=== PATIENT | female | born 1980 | race Caucasian/White ===

== ENCOUNTER → 2016-11-03 | Outpatient (CLI) | payer OTHER ==
[~2016-11-03] MED LIST: PRENTAB26 PO
[2016-11-03 18:01] LABS: THYROID STIMULATING HORMONE 6.09 uIu/ml (0.300-4.500)
== END | disposition home or self-care (01) ==
LOC: C.LABPBG 11:16
PROVIDERS: ATTEND Physician Assistant
DX: L67.8 Other hair color and hair shaft abnormalities (principal)

== ENCOUNTER → 2016-11-06 | Outpatient (CLI) | payer OTHER ==
--- NOTE | 2016-11-06 14:14 | DIAGNOSTIC IMAGING REPORT ---
L-SPINE FLEX/EXT BENDING MIN 6 CLINICAL HISTORY: 36 years-old Female presenting with left-sided radiculopathy, back pain. TECHNIQUE: Frontal, bilateral oblique, and lateral views of the lumbar spine with coned and lateral view of the lumbosacral junction were obtained. COMPARISON: None. FINDINGS: Vertebral bodies maintain normal height and alignment. Intervertebral disc spaces preserved. No radiographic evidence of acute fracture or subluxation. No osseous neural foraminal narrowing. Nonobstructive bowel gas pattern. IMPRESSION: No radiographic evidence of lumbar spine abnormality.. Electronically signed by: Humble Guzman M.D. 11/06/2016 2:12 PM Dictated Date/Time: 11/06/2016 2:11 PM
== END | disposition home or self-care (01) ==
LOC: C.RAD 13:43
PROVIDERS: ATTEND Physician Assistant
DX: M54.10 Radiculopathy, site unspecified (principal)

== ENCOUNTER → 2016-12-23 | Outpatient (CLI) | payer OTHER | END | disposition home or self-care (01) | LOC: C.LAB 14:20 | PROVIDERS: ATTEND Physician Assistant | DX: E03.9 Hypothyroidism, unspecified (principal) ==

== ENCOUNTER → 2017-01-13 | Outpatient (CLI) | payer OTHER ==
--- NOTE | 2017-01-13 14:01 | DIAGNOSTIC IMAGING REPORT ---
LUMBAR SPINE W/O CONTRAST CLINICAL HISTORY: 36 years-old Female with M54.10 Back pain with left-sided [id number]. Acute back pain with left-sided radiculopathy. COMPARISON: Lumbar spine radiographs 11/06/2016 TECHNIQUE: Multiplanar, multi sequence MRI of the lumbar spine was performed without intravenous contrast. FINDINGS: The lumbar alignment is normal. The vertebral body heights are normal. There is no T1 fracture line or marrow replacement process. The conus terminates at L1. The visualized spinal cord and cauda equina are normal. There is no paraspinal edema, mass, or prevertebral fluid collection. The intra-abdominal structures are grossly unremarkable. There is mild disc desiccation at L4-L5 without associated significant intervertebral disc space narrowing. Mild intervertebral disc space narrowing is seen at T11-T12 and T12-L1 with small Schmorl's nodes. Minimal posterior disc bulging is also seen at these levels without high-grade stenosis on the sagittal imaging alone. T12-L1: Mild intervertebral disc space narrowing with broad-based posterior disc bulge. No central canal or foraminal narrowing on the sagittal imaging alone. L1-L2: No central canal or neural foraminal stenosis. L2-L3: No central canal or neural foraminal stenosis. L3-L4: No central canal or neural foraminal stenosis. Small facet effusions. L4-L5: Mild disc desiccation and minimal broad-based posterior disc bulge is present flattening the ventral thecal sac without significant central canal or foraminal narrowing. L5-S1: No central canal or neural foraminal stenosis. IMPRESSION: 1. No significant intervertebral disc space narrowing, central canal or foraminal narrowing. 2. Mild disc desiccation with broad-based posterior disc bulge at L4-L5. No associated significant stenosis. 3. Mild intervertebral disc space narrowing with small Schmorl's nodes at T11-T12 and T12-L1. 4. No focal bone marrow edema or fracture. The above report was generated using voice recognition software. It may contain grammatical, syntax or spelling errors. Electronically signed by: Ricki Cash M.D. 01/13/2017 2:00 PM Dictated Date/Time: 01/13/2017 1:53 PM
== END | disposition home or self-care (01) ==
LOC: C.MRI 13:06
PROVIDERS: ATTEND Physician Assistant
DX: M54.16 Radiculopathy, lumbar region (principal)

== ENCOUNTER → 2017-05-17 | Outpatient (CLI) | payer OTHER | END | disposition home or self-care (01) | LOC: C.PAPS 14:50 | PROVIDERS: ATTEND Obstetrics & Gynecology | DX: Z12.4 Encounter for screening for malignant neoplasm of cervix (principal) ==

== ENCOUNTER → 2017-08-17 | Outpatient (CLI) | payer OTHER ==
[2017-08-17 16:43] LABS: BASO % 0.1 %; BASO ABS # 0.01 K/uL (0-0.2); EOS % 1.4 %; EOS ABS # 0.11 K/uL (0-0.5); HEMATOCRIT 39.2 % (37-47); HEMOGLOBIN 13.3 g/dL (12.0-16.0); IG# 0.01 K/uL (0.00-0.02); LYMPH % 29.6 %; LYMPH ABS # 2.38 K/uL (1.2-3.4); MEAN CELL VOLUME 91.8 fL (80-100); MEAN CORPUSCULAR HEMOGLOBIN 31.1 pg (25-34); MEAN CORPUSCULAR HGB CONC 33.9 g/dl (32-36); MEAN PLATELET VOLUME 10.4 fL (7.4-10.4); MONO % 8.8 %; MONO ABS # 0.71 K/uL (0.11-0.59); NEUT ABS # 4.81 K/uL (1.4-6.5); PLATELET COUNT 273 K/uL (130-400); RED CELL DISTRIBUTION WIDTH CV 13.2 % (11.5-14.5); RED CELL DISTRIBUTION WIDTH SD 44.2 fL (36.4-46.3); WHITE BLOOD COUNT 8.03 K/uL (4.8-10.8)
== END | disposition home or self-care (01) ==
LOC: C.LAB 15:23
PROVIDERS: ATTEND Family Medicine
DX: R53.83 Other fatigue (principal)

== ENCOUNTER 2017-12-01 14:06 | Emergency (ER) | payer OTHER ==
[~2017-12-01] VITALS: Ht 170.2 cm; Wt 91.2 kg
[2017-12-01 14:14] VITALS: TEMP 36.7; Ht 170.2 cm; Wt 91.2 kg
[2017-12-01] MEDS ORDERED: LIDOCAINE 1% BUFFERED INJ 20 ML VIAL INFIL ONE (14:45)
[2017-12-01 16:20] VITALS: BP 113/101; PULSE 74; O2SAT 98
--- NOTE | 2017-12-01 22:03 | EMERGENCY ROOM VISIT NOTE ---
History First contact with patient: 14:17 Chief Complaint: LACERATION/CUT (SUT/DERMABOND) Stated Complaint: LACERATION TO HEAD Nursing Triage Summary: 0.5 inch lacaration left forehead History of Present Illness The patient is a 37 year old female who presents to the Emergency Room with complaints of a laceration to the forehead. The patient was helping her mother clean and out building when a ladder fell and struck her head the head. She denies any loss of consciousness, headache, nausea or neck pain. She denies any significant bleeding from the wound, and rates her discomfort a 7 out of 10. Tetanus immunization is up-to-date. Review of Systems 6 system review was performed and was negative except for pertinent positives and negatives as indicated in history of present illness Past Medical/Surgical History Medical Problems: (1) Active labor Family History Unremarkable Social History Smoking Status: Never Smoker Alcohol Use: none Marital Status: single Housing Status: lives with family Occupation Status: employed Current/Historical Medications Scheduled Multivit/Min/Iron/Fol Ac/Pren ( Vitamin), Unknown Dose PO DAILY Physical Exam Vital Signs Date Time Temp Pulse Resp B/P (MAP) Pulse Ox O2 Delivery O2 Flow Rate FiO2 12/01/17 16:20 74 113/101 98 12/01/17 14:14 36.7 98 16 143/93 100 Room Air Physical Exam CONSTITUTIONAL: Healthy and well nourished. Alert and oriented X 3 with positive affect. Patient does not appear in any acute distress. GCS 15. HEENT: Examination of the left upper forehead shows a 1 cm laceration without hematoma or active bleeding. No gross wound contamination noted. Patient has no fluctuance of the forehead or scalp. Pupils equal, round and reactive. No subconjunctival hemorrhage or epistaxis. NECK: Full active range of motion without discomfort. INTEGUMENTARY: No rash or other significant dermatologic conditions noted. NEUROLOGIC: Cranial nerves II-XII grossly intact. Facial sensations are intact. Medical Decision & Procedures Procedure Laceration repair was performed under local anesthesia after receiving verbal consent from the patient. Using buffered 1% lidocaine without epinephrine, good local anesthesia was administered. The wound was then peripherally cleansed with iodine, then irrigated with normal saline. Exploration of the wound does not show any underlying debris. The wound was then approximated using 6-0 nylon simple interrupted sutures. Bacitracin was applied. ED Course Patient history and physical exam were performed. Nurse's notes were reviewed. Vital signs were reviewed, showing a mild elevated blood pressure 143/93. Laceration repair was performed under local anesthesia. The patient was provided additional verbal and written wound care instructions. Ice for swelling. Ibuprofen and Tylenol as needed for pain. Suture removal in 5-7 days , or seek reevaluation sooner for any signs of wound infection. The patient was happy with plan of care, voiced understanding of all discharge instructions , and denied any significant pain at the time of discharge. It was noted that the patient's blood pressure was also elevated at discharge. She was instructed to follow-up with her PCP for further blood pressure recheck. Medical Decision Blood Pressure Screening Patient's blood pressure: Elevated blood pressure Blood pressure disposition: Referred to PCP Impression Primary Impression: Forehead laceration Additional Impression: Elevated blood pressure reading Departure Information Dispostion Home / Self-Care Condition GOOD Forms HOME CARE DOCUMENTATION FORM, IMPORTANT VISIT INFORMATION Patient Instructions [facility] Additional Instructions Keep wound clean and dry. Do not allow any crusting or dried blood to accumulate on sutures. If this occurs, use a 1:1 solution of hydrogen peroxide/ water on a Q-tip to clean the wound. Use an antibiotic ointment for 3 days, then let wound dry. Suture removal in 5-7 days. Return sooner for any signs of infection (increasing redness, swelling, drainage). Ice for swelling. Ibuprofen 600 mg and/or Tylenol 1000 mg every 6 hrs if needed for pain. Problem Qualifiers
== END 2017-12-01 16:20 | disposition home or self-care (01) ==
LOC: C.EDB 14:09 → C.EDD 16:20
DX: S01.81XA Laceration without foreign body of other part of head, initial encounter (principal); W20.8XXA Other cause of strike by thrown, projected or falling object, initial encounter; R40.2412 Glasgow coma scale score 13-15, at arrival to emergency department; R03.0 Elevated blood-pressure reading, without diagnosis of hypertension

== ENCOUNTER → 2017-12-08 | Outpatient (CLI) | payer OTHER | END | disposition home or self-care (01) | LOC: C.LABPBG 08:46 | PROVIDERS: ATTEND Family Medicine | DX: E55.9 Vitamin D deficiency, unspecified (principal) ==